=== PATIENT | female | born 1965 | race African-American/Black ===

== ENCOUNTER 2020-11-19 18:55 | Inpatient (IN) | payer MEDICARE, MEDICAID ==
[2020-11-19] MEDS ORDERED: Senokot S 8.6-50 MG TAB PO PRN (19:54)
[2020-11-19] MEDS ORDERED: Bisacodyl 5 MG TAB PO PRN (19:54)
[2020-11-19] MEDS ORDERED: Acetaminophen 325 MG TAB PO PRN (19:54)
[2020-11-19] MEDS ORDERED: Ondansetron PF 4 MG/2 ML Vial IVP PRN (19:54)
[2020-11-19] MEDS ORDERED: Norepinephrine 8 MG/0.9% NS 250 ML IVPB SCH (20:00)
[2020-11-19] MEDS ORDERED: Albumin 25% 25 GM/100 ML BOT IVPB SCH (20:15)
[2020-11-19] MEDS: Dextrose 5 %-0.45 % NaCl 1,000 ML IV SCH (20:54)
[2020-11-19] MEDS: Heparin 5,000 UNITS/ML VIAL SC SCH (20:56)
[2020-11-19] MEDS: Potassium Chloride 20 MEQ in Premix Bag 1 BAG IVPB SCH ×2 (20:56→23:05)
[2020-11-19 21:35] LABS: Lactic Acid 2.7 mmol/L (0.5-2.2)
[2020-11-19 21:40] LABS: Anion Gap 19 mmol/L (10-20); BUN (Urea Nitrogen) 42 mg/dL (9.8-20.1); CK (CPK) 1062 U/L (29-168); Calc. Creatinine Clearance 14 mL/min (70-130); Calcium 6.3 mg/dL (7.8-10.44); Carbon Dioxide 17 mmol/L (22-29); Chloride 111 mmol/L (98-107); Glucose 160 mg/dL (70-105); Potassium 3.4 mmol/L (3.5-5.1); Sodium 144 mmol/L (136-145)
[2020-11-19 22:03] LABS: CKMB 4.6 ng/mL (0-6.6)
[2020-11-19] MEDS ORDERED: Calcium Gluconate 4.6 MEQ in Sodium Chloride 0.9% 100 ML IVPB SCH (22:14)
[2020-11-19] MEDS ORDERED: Calcium Gluconate 100 MG/ML 10 ML ONE (23:19)
[2020-11-20 04:28] LABS: Hemoglobin 8.3 g/dL (12.0-15.5); Mean Corpuscular HGB CONC 32.7 g/dL (32.0-36.0); Mean Corpuscular Hemoglobin 25.3 pg (27.0-33.0); Mean Corpuscular Volume 77.4 fl (81.6-98.3); Mean Platelet Volume 10.2 fl (7.4-10.4); Platelet Count 136 10x3/uL (150-450); RBC Distribution Width 16.1 % (11.5-14.5); Red Blood Cell (RBC) Count 3.28 10x6/uL (3.90-5.03); White Blood Cell (WBC) Count 31.5 10x3/uL (3.5-10.5)
[2020-11-20 04:36] LABS: Lactic Acid 1.9 mmol/L (0.5-2.2)
[2020-11-20 04:39] LABS: ALT (SGPT) 67 U/L (8-55); AST (SGOT) 60 U/L (5-34); Albumin 3.3 g/dL (3.5-5.0); Alkaline Phosphatase 118 U/L (40-110); Anion Gap 15 mmol/L (10-20); BUN (Urea Nitrogen) 38 mg/dL (9.8-20.1); Bilirubin, Total 0.8 mg/dL (0.2-1.2); CK (CPK) 1013 U/L (29-168); Calc. Creatinine Clearance 16 mL/min (70-130); Calcium 6.7 mg/dL (7.8-10.44); Carbon Dioxide 18 mmol/L (22-29); Chloride 115 mmol/L (98-107); Globulin 2.5 g/dL (2.4-3.5); Glucose 222 mg/dL (70-105); Magnesium 1.6 mg/dL (1.6-2.6); Potassium 3.5 mmol/L (3.5-5.1); Protein, Total 5.8 g/dL (6.0-8.3); Sodium 144 mmol/L (136-145)
[2020-11-20 04:54] LABS: Free T4 (Free Thyroxine) 1.32 ng/dL (0.70-1.48); Thyroid Stimulating Hormone 0.0377 uIU/mL (0.35-4.94)
[2020-11-20 04:56] LABS: CKMB 5.1 ng/mL (0-6.6)
[2020-11-20 05:00] LABS: MDiff Complete? YES
[2020-11-20 05:03] LABS: Band 29 % (5-11); Lymphocytes 1 % (21-51); Metamyelocyte 3 % (0-0); Monocytes 1 % (0-10); Neutrophil 36 % (42-75)
[2020-11-20 05:06] LABS: Anisocytosis SLIGHT = 6-15 cells (100X) (0-5/hpf); Dohle Bodies SLIGHT; Platelet Morphology Comment Appears Adequate; Poikilocytosis SLIGHT = 6-15 cells (100X) (0-5/hpf); Vacuoles SLIGHT
[2020-11-20] MEDS: Dextrose 5 %-0.45 % NaCl 1,000 ML IV SCH (05:50)
[2020-11-20] MEDS ORDERED: Vancomycin HCl 750 MG in Sodium Chloride 0.9% 250 ML 250 ML IVPB SCH (06:45)
[2020-11-20] MEDS ORDERED: Vancomycin HCl 500 MG in Sodium Chloride 0.9% 100 ML IVPB SCH ×2 (07:00→16:00)
[2020-11-20] MEDS: Aspirin 81 mg Enteric Coated Tablet PO SCH (08:41)
[2020-11-20] MEDS: Famotidine/PF 20 mg/2ml Vial SLOW IVP SCH (08:42)
[2020-11-20] MEDS: Heparin 5,000 UNITS/ML VIAL SC SCH ×2 (08:43→21:50)
[2020-11-20] MEDS: Polyethylene Glycol 3350 17 GM Packet PO SCH (08:54)
[2020-11-20] MEDS: Senokot S 8.6-50 MG TAB PO SCH ×2 (08:55→21:54)
[2020-11-20] MEDS: Meropenem 500 MG in Sodium Chloride 0.9% 100 ML IVPB SCH ×2 (10:25→22:50)
[2020-11-20] MEDS: Lactated Ringer's 1,000 ML IV SCH ×2 (10:32→21:53)
[2020-11-20] MEDS ORDERED: Cefepime 1 GM in Sodium Chloride 0.9% 100 ML IVPB SCH (14:00)
[2020-11-20 15:00] LABS: Vancomycin, Random 16.3 ug/mL (See Comment)
[2020-11-20] MEDS ORDERED: Meropenem 500 MG VIAL ONE (22:48)
[2020-11-21] MEDS: Lactated Ringer's 1,000 ML IV SCH (09:19)
[2020-11-21] MEDS: Heparin 5,000 UNITS/ML VIAL SC SCH ×2 (09:19→21:33)
[2020-11-21] MEDS: Famotidine/PF 20 mg/2ml Vial SLOW IVP SCH (09:19)
[2020-11-21] MEDS: Polyethylene Glycol 3350 17 GM Packet PO SCH (09:35)
[2020-11-21] MEDS: Aspirin 81 mg Enteric Coated Tablet PO SCH (09:35)
[2020-11-21] MEDS: Senokot S 8.6-50 MG TAB PO SCH ×2 (09:36→20:43)
[2020-11-21 10:18] LABS: Anion Gap 17 mmol/L (10-20); BUN (Urea Nitrogen) 33 mg/dL (9.8-20.1); Calc. Creatinine Clearance 26 mL/min (70-130); Calcium 7.4 mg/dL (7.8-10.44); Carbon Dioxide 20 mmol/L (22-29); Chloride 115 mmol/L (98-107); Sodium 149 mmol/L (136-145)
[2020-11-21 10:23] LABS: Glucose 52 mg/dL (70-105)
[2020-11-21 10:28] LABS: Hemoglobin 9.2 g/dL (12.0-15.5); MDiff Complete? YES; Mean Corpuscular HGB CONC 33.5 g/dL (32.0-36.0); Mean Corpuscular Hemoglobin 25.3 pg (27.0-33.0); Mean Corpuscular Volume 75.5 fl (81.6-98.3); Mean Platelet Volume 10.5 fl (7.4-10.4); Platelet Count 123 10x3/uL (150-450); RBC Distribution Width 15.9 % (11.5-14.5); Red Blood Cell (RBC) Count 3.64 10x6/uL (3.90-5.03); White Blood Cell (WBC) Count 27.3 10x3/uL (3.5-10.5)
[2020-11-21 10:37] LABS: Band 9 % (5-11); Lymphocytes 4 % (21-51); Metamyelocyte 10 % (0-0); Monocytes 3 % (0-10); Neutrophil 74 % (42-75)
[2020-11-21 10:40] LABS: Large Platelets SLIGHT; Platelet Morphology Comment Appears Adequate; Schistocytes SLIGHT = 2-5 cells (100X) (0-1/hpf); Target Cells SLIGHT = 2-5 cells (100X) (0-1/hpf); Vacuoles SLIGHT
[2020-11-21 10:41] LABS: RBC Morphology Normal
[2020-11-21] MEDS ORDERED: Dextrose 50% Abboject 50 ML SYRINGE ONE (10:59)
[2020-11-21] MEDS: Meropenem 500 MG in Sodium Chloride 0.9% 100 ML IVPB SCH (12:05)
[2020-11-21 16:38] LABS: Vancomycin, Random 18.2 ug/mL (See Comment)
[2020-11-21] MEDS: D5 1/2 NS w/40 mEq KCL 1,000 ML IV SCH ×2 (17:15→19:29)
[2020-11-21] MEDS: Vancomycin HCl 500 MG in Sodium Chloride 0.9% 100 ML IVPB SCH (17:15)
[2020-11-21] MEDS: Acetaminophen 325 MG Suppository PR PRN (21:26)
[2020-11-22] MEDS: Meropenem 500 MG in Sodium Chloride 0.9% 100 ML IVPB SCH ×2 (00:21→12:30)
[2020-11-22 04:35] LABS: Anion Gap 14 mmol/L (10-20); BUN (Urea Nitrogen) 27 mg/dL (9.8-20.1); Calc. Creatinine Clearance 31 mL/min (70-130); Calcium 7.4 mg/dL (7.8-10.44); Carbon Dioxide 24 mmol/L (22-29); Chloride 108 mmol/L (98-107); Glucose 115 mg/dL (70-105); Sodium 143 mmol/L (136-145)
[2020-11-22 04:42] LABS: Hemoglobin 9.3 g/dL (12.0-15.5); Mean Corpuscular HGB CONC 33.2 g/dL (32.0-36.0); Mean Corpuscular Hemoglobin 24.7 pg (27.0-33.0); Mean Corpuscular Volume 74.3 fl (81.6-98.3); Platelet Count 112 10x3/uL (150-450); RBC Distribution Width 15.6 % (11.5-14.5); Red Blood Cell (RBC) Count 3.77 10x6/uL (3.90-5.03)
[2020-11-22 04:44] LABS: Potassium 2.7 mmol/L (3.5-5.1)
[2020-11-22] MEDS: Potassium Chloride 20 MEQ in Premix Bag 1 BAG IVPB SCH ×2 (05:18→06:59)
[2020-11-22 06:02] LABS: Band 16 % (5-11); Eosinophils 3 % (0-10); Lymphocytes 1 % (21-51); Monocytes 5 % (0-10)
[2020-11-22 06:04] LABS: Anisocytosis SLIGHT = 6-15 cells (100X) (0-5/hpf); Large Platelets SLIGHT; Microcytosis SLIGHT = 6-15 cells (100X) (0-5/hpf); Neutrophil 75 % (42-75); Platelet Morphology Comment Appears Decreased; Toxic Granulation SLIGHT
[2020-11-22 06:05] LABS: MDiff Complete? YES; Manual Diff?? YES
[2020-11-22] MEDS: Senokot S 8.6-50 MG TAB PO SCH ×2 (07:53→23:57)
[2020-11-22] MEDS: Famotidine/PF 20 mg/2ml Vial SLOW IVP SCH (07:53)
[2020-11-22] MEDS: Polyethylene Glycol 3350 17 GM Packet PO SCH (07:53)
[2020-11-22 10:28] LABS: Anion Gap 14 mmol/L (10-20); BUN (Urea Nitrogen) 23 mg/dL (9.8-20.1); Calc. Creatinine Clearance 35 mL/min (70-130); Calcium 7.9 mg/dL (7.8-10.44); Carbon Dioxide 25 mmol/L (22-29); Chloride 109 mmol/L (98-107); Glucose 133 mg/dL (70-105); Potassium 3.5 mmol/L (3.5-5.1); Sodium 144 mmol/L (136-145)
[2020-11-22] MEDS ORDERED: PROPOFOL 20 ML ONE (14:00)
[2020-11-22] MEDS ORDERED: Lidocaine 4% PF 5 ML AMP ONE (14:01)
[2020-11-22] MEDS ORDERED: Potassium Chloride 20 MEQ in Premix Bag 1 BAG IVPB SCH (14:15)
[2020-11-22] MEDS: D5 1/2 NS w/40 mEq KCL 1,000 ML IV SCH ×2 (14:33→17:55)
[2020-11-22 16:50] LABS: Vancomycin, Trough 15.9 ug/mL
[2020-11-22] MEDS: Vancomycin HCl 500 MG in Sodium Chloride 0.9% 100 ML IVPB SCH (17:52)
[2020-11-22] MEDS: Heparin 5,000 UNITS/ML VIAL SC SCH (21:02)
[2020-11-23] MEDS: Meropenem 500 MG in Sodium Chloride 0.9% 100 ML IVPB SCH (00:35)
[2020-11-23] MEDS ORDERED: D5 1/2 NS w/40 mEq KCL 1,000 ML ONE (04:55)
[2020-11-23 05:26] LABS: Anion Gap 14 mmol/L (10-20); BUN (Urea Nitrogen) 17 mg/dL (9.8-20.1); Calc. Creatinine Clearance 42 mL/min (70-130); Calcium 8.3 mg/dL (7.8-10.44); Carbon Dioxide 27 mmol/L (22-29); Chloride 108 mmol/L (98-107); Glucose 112 mg/dL (70-105); Potassium 3.3 mmol/L (3.5-5.1); Sodium 146 mmol/L (136-145)
[2020-11-23 05:47] LABS: Hemoglobin 10.4 g/dL (12.0-15.5); Mean Corpuscular Hemoglobin 24.6 pg (27.0-33.0); Mean Corpuscular Volume 74.6 fl (81.6-98.3); Platelet Count 73 10x3/uL (150-450); RBC Distribution Width 15.5 % (11.5-14.5); Red Blood Cell (RBC) Count 4.22 10x6/uL (3.90-5.03); White Blood Cell (WBC) Count 15.5 10x3/uL (3.5-10.5)
[2020-11-23 08:38] LABS: Band 6 % (5-11); Eosinophils 2 % (0-10); Lymphocytes 3 % (21-51); Monocytes 7 % (0-10); Neutrophil 82 % (42-75)
[2020-11-23 08:40] LABS: Platelet Morphology Comment Appears Decreased
[2020-11-23 08:41] LABS: MDiff Complete? YES
[2020-11-23] MEDS: Senokot S 8.6-50 MG TAB PO SCH ×2 (09:00→21:12)
[2020-11-23] MEDS: Famotidine/PF 20 mg/2ml Vial SLOW IVP SCH (09:07)
[2020-11-23] MEDS: Heparin 5,000 UNITS/ML VIAL SC SCH ×2 (09:07→21:11)
[2020-11-23] MEDS: cefTRIAXone\\ROCEPHIN 1 GM in Sodium Chloride 0.9% 100 ML IVPB SCH (09:15)
[2020-11-23] MEDS: Polyethylene Glycol 3350 17 GM Packet PO SCH (12:09)
[2020-11-23] MEDS: D5 1/2 NS w/40 mEq KCL 1,000 ML IV SCH ×2 (16:30→19:30)
[2020-11-24] MEDS: D5 1/2 NS w/40 mEq KCL 1,000 ML IV SCH ×2 (03:45→15:02)
[2020-11-24 05:38] LABS: Anion Gap 11 mmol/L (10-20); BUN (Urea Nitrogen) 15 mg/dL (9.8-20.1); Calc. Creatinine Clearance 45 mL/min (70-130); Calcium 8.2 mg/dL (7.8-10.44); Carbon Dioxide 30 mmol/L (22-29); Chloride 105 mmol/L (98-107); Glucose 160 mg/dL (70-105); Potassium 4.5 mmol/L (3.5-5.1); Sodium 141 mmol/L (136-145)
[2020-11-24 06:04] LABS: Hemoglobin 9.4 g/dL (12.0-15.5); Mean Corpuscular HGB CONC 33.1 g/dL (32.0-36.0); Mean Corpuscular Hemoglobin 25.2 pg (27.0-33.0); Mean Corpuscular Volume 76.1 fl (81.6-98.3); Mean Platelet Volume 11.6 fl (7.4-10.4); Platelet Count 144 10x3/uL (150-450); RBC Distribution Width 15.4 % (11.5-14.5); Red Blood Cell (RBC) Count 3.73 10x6/uL (3.90-5.03); White Blood Cell (WBC) Count 15.1 10x3/uL (3.5-10.5)
[2020-11-24 06:37] LABS: Band 18 % (5-11); Eosinophils 1 % (0-10); Lymphocytes 10 % (21-51); Monocytes 5 % (0-10); Myelocyte 1 % (0-0); Neutrophil 64 % (42-75); Reactive Lymphocytes 1 % (0-10)
[2020-11-24 06:38] LABS: Anisocytosis SLIGHT = 6-15 cells (100X) (0-5/hpf); Microcytosis MODERATE=15-30 cells (100X) (0-5/hpf)
[2020-11-24 06:39] LABS: Large Platelets SLIGHT; Platelet Morphology Comment Appears Adequate
[2020-11-24 06:40] LABS: MDiff Complete? YES; Manual Diff?? YES
[2020-11-24] MEDS: Polyethylene Glycol 3350 17 GM Packet PO SCH (08:37)
[2020-11-24] MEDS: Senokot S 8.6-50 MG TAB PO SCH ×2 (08:37→21:06)
[2020-11-24] MEDS: Heparin 5,000 UNITS/ML VIAL SC SCH ×2 (08:37→21:06)
[2020-11-24] MEDS: Aspirin 81 mg Enteric Coated Tablet PO SCH (08:37)
[2020-11-24] MEDS: Famotidine/PF 20 mg/2ml Vial SLOW IVP SCH (08:38)
[2020-11-24] MEDS ORDERED: Cefdinir 300 MG CAP PO SCH (09:30)
[2020-11-24] MEDS: cefTRIAXone\\ROCEPHIN 1 GM in Sodium Chloride 0.9% 100 ML IVPB SCH (10:57)
[2020-11-24] MEDS: Clindamycin/D5W 900 MG in Premix Bag 1 BAG IVPB SCH ×2 (15:01→21:07)
[2020-11-25] MEDS: D5 1/2 NS w/40 mEq KCL 1,000 ML IV SCH ×2 (01:12→16:40)
[2020-11-25] MEDS: Clindamycin/D5W 900 MG in Premix Bag 1 BAG IVPB SCH ×3 (05:40→21:46)
[2020-11-25 07:19] LABS: Anion Gap 14 mmol/L (10-20)
[2020-11-25 07:25] LABS: Mean Corpuscular HGB CONC 32.4 g/dL (32.0-36.0); Mean Corpuscular Hemoglobin 24.6 pg (27.0-33.0); Mean Corpuscular Volume 76.1 fl (81.6-98.3); Mean Platelet Volume 12.7 fl (7.4-10.4); Platelet Count 172 10x3/uL (150-450); RBC Distribution Width 15.9 % (11.5-14.5); Red Blood Cell (RBC) Count 4.06 10x6/uL (3.90-5.03); White Blood Cell (WBC) Count 18.1 10x3/uL (3.5-10.5)
[2020-11-25 07:33] LABS: BUN (Urea Nitrogen) 19 mg/dL (9.8-20.1); Calc. Creatinine Clearance 27 mL/min (70-130); Calcium 8.5 mg/dL (7.8-10.44); Carbon Dioxide 27 mmol/L (22-29); Chloride 101 mmol/L (98-107); Glucose 232 mg/dL (70-105); Potassium 5.6 mmol/L (3.5-5.1); Sodium 136 mmol/L (136-145)
[2020-11-25 08:02] LABS: Hypochromia MODERATE=16-30 cells (100X) (0-5/hpf); Macrocytosis SLIGHT = 6-15 cells (100X) (0-5/hpf); Microcytosis MODERATE=15-30 cells (100X) (0-5/hpf); Ovalocytes SLIGHT = 2-5 cells (100X) (0-1/hpf); Poikilocytosis SLIGHT = 6-15 cells (100X) (0-5/hpf)
[2020-11-25 08:03] LABS: Platelet Morphology Comment Appears Adequate
[2020-11-25 08:04] LABS: Large Platelets SLIGHT
[2020-11-25 08:09] LABS: Band 20 % (5-11); Eosinophils 4 % (0-10); Lymphocytes 12 % (21-51); Metamyelocyte 1 % (0-0); Monocytes 4 % (0-10); Myelocyte 1 % (0-0); Neutrophil 58 % (42-75)
[2020-11-25 08:14] LABS: Anisocytosis SLIGHT = 6-15 cells (100X) (0-5/hpf)
[2020-11-25 08:18] LABS: MDiff Complete? YES; Manual Diff?? YES
[2020-11-25] MEDS: Heparin 5,000 UNITS/ML VIAL SC SCH ×2 (08:34→21:45)
[2020-11-25] MEDS: Famotidine/PF 20 mg/2ml Vial SLOW IVP SCH (08:35)
[2020-11-25] MEDS: Aspirin 81 mg Enteric Coated Tablet PO SCH (08:35)
[2020-11-25] MEDS: Polyethylene Glycol 3350 17 GM Packet PO SCH (09:15)
[2020-11-25] MEDS: Senokot S 8.6-50 MG TAB PO SCH ×2 (09:16→21:45)
[2020-11-25] MEDS: cefTRIAXone\\ROCEPHIN 1 GM in Sodium Chloride 0.9% 100 ML IVPB SCH (11:24)
[2020-11-25] MEDS ORDERED: guaiFENesin 100 MG/5 ML UDCUP ONE (11:28)
[2020-11-25] MEDS: guaiFENesin 100 MG/5 ML UDCUP PO PRN (11:30)
[2020-11-25] MEDS ORDERED: Furosemide 20 MG/2 ML VIAL SLOW IVP SCH (12:30)
[2020-11-26 05:42] LABS: Hemoglobin 9.2 g/dL (12.0-15.5); Mean Corpuscular HGB CONC 32.7 g/dL (32.0-36.0); Mean Corpuscular Hemoglobin 24.8 pg (27.0-33.0); Mean Corpuscular Volume 75.7 fl (81.6-98.3); Mean Platelet Volume 10.9 fl (7.4-10.4); Platelet Count 203 10x3/uL (150-450); RBC Distribution Width 15.7 % (11.5-14.5); Red Blood Cell (RBC) Count 3.71 10x6/uL (3.90-5.03); White Blood Cell (WBC) Count 18.9 10x3/uL (3.5-10.5)
[2020-11-26] MEDS: Clindamycin/D5W 900 MG in Premix Bag 1 BAG IVPB SCH ×3 (05:43→21:49)
[2020-11-26 05:49] LABS: Anion Gap 13 mmol/L (10-20); BUN (Urea Nitrogen) 25 mg/dL (9.8-20.1); Calc. Creatinine Clearance 21 mL/min (70-130); Calcium 8.5 mg/dL (7.8-10.44); Carbon Dioxide 29 mmol/L (22-29); Chloride 99 mmol/L (98-107); Glucose 128 mg/dL (70-105); Potassium 5.3 mmol/L (3.5-5.1); Sodium 136 mmol/L (136-145)
[2020-11-26 07:35] LABS: MDiff Complete? YES
[2020-11-26 07:37] LABS: Band 12 % (5-11); Eosinophils 2 % (0-10); Lymphocytes 8 % (21-51); Neutrophil 66 % (42-75); Reactive Lymphocytes 1 % (0-10)
[2020-11-26 07:38] LABS: Metamyelocyte 3 % (0-0); Monocytes 6 % (0-10); Myelocyte 2 % (0-0)
[2020-11-26 07:41] LABS: Hypochromia SLIGHT = 6-15 cells (100X) (0-5/hpf); Microcytosis SLIGHT = 6-15 cells (100X) (0-5/hpf)
[2020-11-26 07:42] LABS: Platelet Morphology Comment Appears Adequate
[2020-11-26] MEDS: Aspirin 81 mg Enteric Coated Tablet PO SCH (08:35)
[2020-11-26] MEDS: Famotidine/PF 20 mg/2ml Vial SLOW IVP SCH (08:35)
[2020-11-26] MEDS: Heparin 5,000 UNITS/ML VIAL SC SCH ×2 (08:35→21:47)
[2020-11-26] MEDS: Polyethylene Glycol 3350 17 GM Packet PO SCH (08:40)
[2020-11-26] MEDS: Senokot S 8.6-50 MG TAB PO SCH ×2 (08:41→21:46)
[2020-11-26] MEDS: cefTRIAXone\\ROCEPHIN 1 GM in Sodium Chloride 0.9% 100 ML IVPB SCH (10:45)
[2020-11-26] MEDS: guaiFENesin 100 MG/5 ML UDCUP PO PRN (14:16)
[2020-11-26] MEDS: Sodium Chloride 0.9% 1,000 ML IV SCH (17:31)
[2020-11-27 05:26] LABS: Anion Gap 12 mmol/L (10-20); BUN (Urea Nitrogen) 28 mg/dL (9.8-20.1); Calc. Creatinine Clearance 19 mL/min (70-130); Carbon Dioxide 30 mmol/L (22-29); Chloride 99 mmol/L (98-107); Glucose 123 mg/dL (70-105); Potassium 5.1 mmol/L (3.5-5.1); Sodium 136 mmol/L (136-145)
[2020-11-27 06:08] LABS: Hemoglobin 8.3 g/dL (12.0-15.5); Mean Corpuscular HGB CONC 32.9 g/dL (32.0-36.0); Mean Corpuscular Hemoglobin 24.7 pg (27.0-33.0); Mean Platelet Volume 11.8 fl (7.4-10.4); Platelet Count 253 10x3/uL (150-450); RBC Distribution Width 15.7 % (11.5-14.5); Red Blood Cell (RBC) Count 3.36 10x6/uL (3.90-5.03); White Blood Cell (WBC) Count 18.2 10x3/uL (3.5-10.5)
[2020-11-27] MEDS: Clindamycin/D5W 900 MG in Premix Bag 1 BAG IVPB SCH ×3 (06:32→21:41)
[2020-11-27] MEDS: Acetaminophen 325 MG Suppository PR PRN (06:32)
[2020-11-27 08:26] LABS: MDiff Complete? YES
[2020-11-27 08:32] LABS: Band 4 % (5-11); Lymphocytes 10 % (21-51); Metamyelocyte 3 % (0-0); Monocytes 7 % (0-10); Myelocyte 1 % (0-0); Neutrophil 75 % (42-75)
[2020-11-27 08:33] LABS: Platelet Morphology Comment Appears Adequate
[2020-11-27 08:34] LABS: Microcytosis SLIGHT = 6-15 cells (100X) (0-5/hpf)
[2020-11-27] MEDS: Aspirin 81 mg Enteric Coated Tablet PO SCH (08:50)
[2020-11-27] MEDS: Senokot S 8.6-50 MG TAB PO SCH ×2 (08:50→21:45)
[2020-11-27] MEDS: Heparin 5,000 UNITS/ML VIAL SC SCH ×2 (08:50→21:44)
[2020-11-27] MEDS: cefTRIAXone\\ROCEPHIN 1 GM in Sodium Chloride 0.9% 100 ML IVPB SCH (08:50)
[2020-11-27] MEDS: Polyethylene Glycol 3350 17 GM Packet PO SCH (08:50)
[2020-11-27] MEDS: Famotidine/PF 20 mg/2ml Vial SLOW IVP SCH (08:50)
[2020-11-27] MEDS: Sodium Chloride 0.9% 1,000 ML IV SCH (18:24)
[2020-11-28] MEDS: Clindamycin/D5W 900 MG in Premix Bag 1 BAG IVPB SCH ×3 (05:24→21:33)
[2020-11-28 05:54] LABS: ALT (SGPT) 157 U/L (8-55); AST (SGOT) 79 U/L (5-34); Alkaline Phosphatase 189 U/L (40-110); Anion Gap 17 mmol/L (10-20); BUN (Urea Nitrogen) 26 mg/dL (9.8-20.1); Bilirubin, Total 0.3 mg/dL (0.2-1.2); Calc. Creatinine Clearance 0 mL/min (70-130); Carbon Dioxide 24 mmol/L (22-29); Chloride 106 mmol/L (98-107); Glucose 73 mg/dL (70-105); Magnesium 1.8 mg/dL (1.6-2.6); Potassium 4.9 mmol/L (3.5-5.1); Sodium 142 mmol/L (136-145)
[2020-11-28 06:12] LABS: Hemoglobin 8.4 g/dL (12.0-15.5); Mean Corpuscular HGB CONC 33.6 g/dL (32.0-36.0); Mean Corpuscular Hemoglobin 25.1 pg (27.0-33.0); Mean Corpuscular Volume 74.9 fl (81.6-98.3); Mean Platelet Volume 11.7 fl (7.4-10.4); Platelet Count 270 10x3/uL (150-450); RBC Distribution Width 16.1 % (11.5-14.5); Red Blood Cell (RBC) Count 3.34 10x6/uL (3.90-5.03); White Blood Cell (WBC) Count 15.3 10x3/uL (3.5-10.5)
[2020-11-28 07:31] LABS: Band 10 % (5-11); Eosinophils 1 % (0-10); Lymphocytes 2 % (21-51); Metamyelocyte 2 % (0-0); Monocytes 6 % (0-10); Myelocyte 2 % (0-0); Reactive Lymphocytes 1 % (0-10)
[2020-11-28 07:32] LABS: Anisocytosis MODERATE=16-30 cells (100X) (0-5/hpf); Hypochromia MODERATE=16-30 cells (100X) (0-5/hpf); Microcytosis MODERATE=15-30 cells (100X) (0-5/hpf); Neutrophil 76 % (42-75); Poikilocytosis SLIGHT = 6-15 cells (100X) (0-5/hpf)
[2020-11-28 07:33] LABS: Ovalocytes SLIGHT = 2-5 cells (100X) (0-1/hpf)
[2020-11-28 07:39] LABS: Platelet Clumps MODERATE; Platelet Morphology Comment Appears Adequate
[2020-11-28 07:40] LABS: MDiff Complete? YES; Manual Diff?? YES
[2020-11-28] MEDS: Aspirin 81 mg Enteric Coated Tablet PO SCH (09:19)
[2020-11-28] MEDS: Heparin 5,000 UNITS/ML VIAL SC SCH ×2 (09:20→21:25)
[2020-11-28] MEDS: Famotidine/PF 20 mg/2ml Vial SLOW IVP SCH (09:20)
[2020-11-28] MEDS: Sodium Chloride 0.9% 1,000 ML IV SCH ×3 (09:20→21:42)
[2020-11-28] MEDS: Polyethylene Glycol 3350 17 GM Packet PO SCH ×2 (09:21→12:20)
[2020-11-28] MEDS: cefTRIAXone\\ROCEPHIN 1 GM in Sodium Chloride 0.9% 100 ML IVPB SCH (09:21)
[2020-11-28] MEDS: Senokot S 8.6-50 MG TAB PO SCH ×2 (10:30→21:27)
[2020-11-28] MEDS ORDERED: diphenhydrAMINE 50 MG/ML VIAL IVP SCH (14:45)
[2020-11-29] MEDS: Sodium Chloride 0.9% 1,000 ML IV SCH ×3 (02:34→23:20)
[2020-11-29] MEDS: Clindamycin/D5W 900 MG in Premix Bag 1 BAG IVPB SCH (06:19)
[2020-11-29 06:52] LABS: #Basophils 0.1 10x3/uL (0.0-0.2); #Eosinphils 0.2 10x3/uL (0.0-0.5); #Monocytes 1.6 10x3/uL (0.0-1.1); #Neutrophils 14.9 10x3/uL (1.5-8.4); %Basophils 0.3 % (0.0-2.0); %Eosinophils 1.1 % (0.0-6.0); %Lymphocytes 6.4 % (18.0-47.0); %Monocytes 8.6 % (0.0-10.0); %Neutrophils 80.9 % (40.0-75.0); Hemoglobin 8.3 g/dL (12.0-15.5); Mean Corpuscular HGB CONC 32.8 g/dL (32.0-36.0); Mean Corpuscular Hemoglobin 25.1 pg (27.0-33.0); Mean Corpuscular Volume 76.4 fl (81.6-98.3); Mean Platelet Volume 10.9 fl (7.4-10.4); Platelet Count 412 10x3/uL (150-450); RBC Distribution Width 16.4 % (11.5-14.5); Red Blood Cell (RBC) Count 3.31 10x6/uL (3.90-5.03); White Blood Cell (WBC) Count 18.4 10x3/uL (3.5-10.5)
[2020-11-29 07:02] LABS: ALT (SGPT) 136 U/L (8-55); AST (SGOT) 50 U/L (5-34); Albumin 3.2 g/dL (3.5-5.0); Alkaline Phosphatase 188 U/L (40-110); Anion Gap 15 mmol/L (10-20); BUN (Urea Nitrogen) 22 mg/dL (9.8-20.1); Bilirubin, Total 0.5 mg/dL (0.2-1.2); Calc. Creatinine Clearance 23 mL/min (70-130); Carbon Dioxide 22 mmol/L (22-29); Chloride 111 mmol/L (98-107); Globulin 3.3 g/dL (2.4-3.5); Glucose 74 mg/dL (70-105); Magnesium 1.9 mg/dL (1.6-2.6); Potassium 4.8 mmol/L (3.5-5.1); Protein, Total 6.5 g/dL (6.0-8.3); Sodium 143 mmol/L (136-145)
[2020-11-29] MEDS: Aspirin 81 mg Enteric Coated Tablet PO SCH (09:53)
[2020-11-29] MEDS: Famotidine/PF 20 mg/2ml Vial SLOW IVP SCH (09:53)
[2020-11-29] MEDS: Polyethylene Glycol 3350 17 GM Packet PO SCH (09:54)
[2020-11-29] MEDS: Heparin 5,000 UNITS/ML VIAL SC SCH ×2 (09:54→20:50)
[2020-11-29] MEDS: Senokot S 8.6-50 MG TAB PO SCH ×2 (09:54→20:51)
[2020-11-30] MEDS ORDERED: diphenhydrAMINE 12.5 MG/5 ML UDCUP PER TUBE PRN (00:57)
[2020-11-30 04:41] LABS: #Eosinphils 0.2 10x3/uL (0.0-0.5); #Monocytes 1.3 10x3/uL (0.0-1.1); #Neutrophils 10.8 10x3/uL (1.5-8.4); %Basophils 0.3 % (0.0-2.0); %Eosinophils 1.1 % (0.0-6.0); %Lymphocytes 7.4 % (18.0-47.0); %Monocytes 9.7 % (0.0-10.0); %Neutrophils 79.6 % (40.0-75.0); Hemoglobin 8.4 g/dL (12.0-15.5); Mean Corpuscular HGB CONC 32.7 g/dL (32.0-36.0); Mean Corpuscular Hemoglobin 24.9 pg (27.0-33.0); Mean Platelet Volume 11.7 fl (7.4-10.4); Platelet Count 488 10x3/uL (150-450); RBC Distribution Width 16.6 % (11.5-14.5); Red Blood Cell (RBC) Count 3.38 10x6/uL (3.90-5.03); White Blood Cell (WBC) Count 13.5 10x3/uL (3.5-10.5)
[2020-11-30 05:17] LABS: ALT (SGPT) 116 U/L (8-55); AST (SGOT) 35 U/L (5-34); Albumin 3.4 g/dL (3.5-5.0); Alkaline Phosphatase 189 U/L (40-110); Anion Gap 15 mmol/L (10-20); BUN (Urea Nitrogen) 18 mg/dL (9.8-20.1); Bilirubin, Total 0.4 mg/dL (0.2-1.2); Calc. Creatinine Clearance 29 mL/min (70-130); Calcium 8.8 mg/dL (7.8-10.44); Carbon Dioxide 23 mmol/L (22-29); Chloride 107 mmol/L (98-107); Globulin 3.7 g/dL (2.4-3.5); Glucose 157 mg/dL (70-105); Magnesium 1.8 mg/dL (1.6-2.6); Potassium 4.4 mmol/L (3.5-5.1); Protein, Total 7.1 g/dL (6.0-8.3); Sodium 141 mmol/L (136-145)
[2020-11-30] MEDS ORDERED: Stress 600 With Zinc 1 TAB PO SCH (09:00)
[2020-11-30] MEDS: Heparin 5,000 UNITS/ML VIAL SC SCH (09:50)
[2020-11-30] MEDS: Aspirin 81 mg Enteric Coated Tablet PO SCH (09:50)
[2020-11-30] MEDS: Famotidine/PF 20 mg/2ml Vial SLOW IVP SCH (09:50)
[2020-11-30] MEDS: Senokot S 8.6-50 MG TAB PO SCH (09:51)
[2020-11-30] MEDS: Polyethylene Glycol 3350 17 GM Packet PO SCH (09:51)
[2020-11-30] MEDS: Sodium Chloride 0.9% 1,000 ML IV SCH (10:22)
[2020-11-30 14:14] VITALS: BMI 23.3
[2020-11-30 16:35] VITALS: BP 142/43; TEMP 96.9
== END 2020-11-30 16:00 | disposition home health service (06) | DRG 871 ==
LOC: CSHIMCU 18:55 → CSHTELE 11-22 17:36
PROVIDERS: ADMIT Internal Medicine; ATTEND Internal Medicine
PROC: 0DH63UZ Insertion of Feeding Device into Stomach, Percutaneous Approach (ICD-10-PCS; principal; 2020-11-22)
DX: A41.89 Other specified sepsis (principal); G93.41 Metabolic encephalopathy; R65.21 Severe sepsis with septic shock; J69.0 Pneumonitis due to inhalation of food and vomit; N39.0 Urinary tract infection, site not specified; N17.9 Acute kidney failure, unspecified; M62.82 Rhabdomyolysis; E87.2 Acidosis; E87.6 Hypokalemia; R13.10 Dysphagia, unspecified; G80.9 Cerebral palsy, unspecified; I11.0 Hypertensive heart disease with heart failure; Z88.0 Allergy status to penicillin; I12.9 Hypertensive chronic kidney disease with stage 1 through stage 4 chronic kidney disease, or unspecified chronic kidney disease; N18.2 Chronic kidney disease, stage 2 (mild); D63.8 Anemia in other chronic diseases classified elsewhere
CPT/HCPCS: 0240U; 36415; 36416; 36556; 51701; 71045; 74176; 80048; 80053; 80202; 81003; 81015; 82550; 82553; 82565; 83605; 83735; 84145; 84439; 84443; 84484; 84520; 85025; 86850; 86900; 86901; 87040; 87077; 87086; 87149; 87186; 93005; 93306; 94760; 94762; 96365; 96366; 96367; 96375; 99292; J0610; J0692; J0696; J1200; J1644; J1940; J2001; J2185; J2405; J2704; J3370; J3480; J3490; J7042; J7050; P9047; Q0163; S0028